=== PATIENT | male | born 1955 | race Hispanic/Latino ===

== ENCOUNTER 2018-04-09 06:21 | Day surgery (SDC) | payer OTHER ==
[2018-04-08 15:27] VITALS: BP 138/75
[~2018-04-09] VITALS: Ht 172.7 cm; Wt 103.1 kg
[2018-04-09] VITALS (14 sets, daily range): BP systolic 117–134; BP diastolic 51–66
[~2018-04-09 06:21] MED LIST: ATOR-2 PO; CEFAZOLIN 3GM /D5W 100ML 100 ML IV SCH; GLIP10TA9 PO; LISI10TA7 PO
[2018-04-09] MEDS ORDERED: SODIUM CHLORIDE 0.9% 1000ML 1,000 ML IV ONE ×2 (07:27→07:28)
[2018-04-09] MEDS ORDERED: CEFAZOLIN SODIUM 1 GM VIAL ONE (07:27)
[2018-04-09] MEDS ORDERED: EPINEPHRINE 1 MG/ML 30ML VIAL IJ ONE (08:07)
[2018-04-09] MEDS ORDERED: LIDOCAINE PF 2% 5ML ABBOJECT ONE (09:00)
[2018-04-09] MEDS ORDERED: SUCCINYLCHOLINE 200MG/10ML SYR ONE (09:00)
[2018-04-09] MEDS ORDERED: NEOSTIGMINE 5MG/5ML SYR IV ONE (09:01)
[2018-04-09] MEDS ORDERED: ONDANSETRON HCL 4 MG/2 ML VIAL ONE (09:01)
[2018-04-09] MEDS ORDERED: DEXAMETHASONE SOD PHOSPHATE 10MG/ML 1ML VIAL ONE (09:01)
[2018-04-09] MEDS ORDERED: PROPOFOL 10 MG/ML 20ML VIAL IV ONE (09:01)
[2018-04-09] MEDS ORDERED: GLYCOPYRROLATE 1 MG/5 ML SYRINGE ONE (09:01)
[2018-04-09] MEDS ORDERED: MIDAZOLAM HCL 1 MG/ML 2ML VIAL ONE (09:01)
[2018-04-09] MEDS ORDERED: FENTANYL CITRATE PF 50 MCG/1 ML 2ML VIAL ONE ×2 (09:02→09:59)
[2018-04-09] MEDS ORDERED: ROCURONIUM 10MG/1ML SYR 10 MG/ML ML ONE (09:02)
[2018-04-09] MEDS ORDERED: EPHEDRINE SULFATE 50 MG/ML AMPULE ONE (09:38)
[2018-04-09] MEDS ORDERED: CEPH500B PO (11:25)
[2018-04-09] MEDS ORDERED: HYDR-4457 PO (11:25)
--- NOTE | 2018-04-09 12:15 | NUR ---
ASSESSMENT RECEIVED PT FROM Marlee MCCORMICK RN. PT [id number]. SLING TO RIGHT ARM IN PLACE. ICE BAG APPLIED TO RIGHT SHOULDER AND INSTRUCTIONS GIVEN TO ON HOW TO USE ICE BAG. PT VERBALIZED UNDERSTANDING.
--- NOTE | 2018-04-09 13:00 | NUR ---
DISCHARGE ORAL AND WRITTEN DISCHARGE INSTRUCTIONS GIVEN TO ALONG WITH PRESCRIPTIONS. NO OTHER QUESTIONS AT THIS TIME. PT VERBALIZED UNDERSTANDING.
== END 2018-04-09 13:10 | disposition home or self-care (01) ==
LOC: DAH 06:21
PROVIDERS: ATTEND Orthopaedic Surgery
DX: S43.401A Unspecified sprain of right shoulder joint, initial encounter (principal); X58.XXXA Exposure to other specified factors, initial encounter; Y93.9 Activity, unspecified; Y92.89 Other specified places as the place of occurrence of the external cause; Y99.9 Unspecified external cause status; M19.011 Primary osteoarthritis, right shoulder; M75.41 Impingement syndrome of right shoulder; I10 Essential (primary) hypertension; M06.9 Rheumatoid arthritis, unspecified; E11.9 Type 2 diabetes mellitus without complications; Z86.73 Personal history of transient ischemic attack (TIA), and cerebral infarction without residual deficits; M19.90 Unspecified osteoarthritis, unspecified site; E78.5 Hyperlipidemia, unspecified; Z68.34 Body mass index [BMI] 34.0-34.9, adult; Z79.899 Other long term (current) drug therapy; G89.29 Other chronic pain; E66.01 Morbid (severe) obesity due to excess calories
CPT/HCPCS: 29822; 29824; 29826; 82948 ×2; A4565; A4649 ×2; A4930 ×2; A6204; G0168; J0171; J0330; J0690; J1100; J2001; J2250; J2405; J2704; J2710; J3010 ×2; J3490 ×2; J7030 ×3